=== PATIENT | male | born 1960 | race Caucasian/White ===

== ENCOUNTER 2016-10-13 05:43 | Day surgery (SDC) | payer OTHER ==
--- NOTE | 2016-10-12 16:21 | GHP ---
[f rep st] PREOP HISTORY AND PHYSICAL DATE OF ADMISSION: 10/13/2016 HISTORY: The patient is a 56-year-old male who presents with left knee pain for months duration. He has had swelling and pain. He has had a sense of catching. His symptoms prompted an MRI of the lef t knee, which shows a medial meniscal tear that communicates with the surface and some chondromalacia patella. He is significantly symptomatic. A left knee arthroscopy is planned. 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 He has had a lumb ar spine surgery, requiring fusions, and continues to have SI joint pain as well as some sciatica typ e pain down the left leg. His oncologist does not feel that he needs IgG infusion. He is not signif icantly immunocompromised at this point. ALLERGIES: He has reaction to Demerol resulting in hives. MEDICATIONS: Include Sprycel 80 mg tablets. He has been using morphine ER 15 mg extended release ta blets for his back discomfort. SURGERIES: Include his spine procedures. PHYSICAL EXAMINATION: GENERAL: The patient is a well-developed, well-nourished male, in no apparent distress. HEAD, NECK: Normocephalic, atraumatic. CHEST: Clear. CARDIOVASCULAR: Regular rate an d rhythm. ABDOMEN: Soft. MUSCULOSKELETAL/NEUROLOGIC: He is alert and oriented x3. Examination of the left knee shows tenderness along the joint lines, especially laterally. He has positive medial and lateral Elizabeth testing, and he has an effusion. He is ligamentously stable with negative Lachm an's, negative pivot-shift. No posterior sag. Collateral ligament stable. He has near full extensi on, flexing to about 120 degrees around which his knee is painful. No erythema or warmth or signs of infection. Normal valgus alignment. Neurovascular exam is intact. SKIN: Intact. IMPRESSION: Left knee has medial meniscal tear, chondromalacia patella, significant mechanical sympt oms. PLAN: Left knee arthroscopy. Benefits and risks of surgery have been reviewed. He has signed his c onsent form and wishes to proceed. /[id number]/MODL
[2016-10-13] MEDS ORDERED: CHLORHEXIDINE GLUC HIBICLENS 118 ML BTL TP ONE (06:00)
[2016-10-13] MEDS ORDERED: ceFAZolin 2 GM/DEXTROSE 100 ML IV ONE (06:00)
[2016-10-13] MEDS ORDERED: DEPO METHYLPREDNISOLONE 40 MG/ML SDV ONE (06:38)
[2016-10-13] MEDS ORDERED: BUPIVACAINE/EPI 0.5% 30 ML SDV ONE (06:38)
[2016-10-13] MEDS ORDERED: BUPIVACAINE 0.5% 30 ML SDV ONE (06:38)
[2016-10-13] MEDS ORDERED: SCOPOLAMINE HYDROBROMIDE 1.5 MG PATCH TD ONE ×3 (06:58→07:30)
[2016-10-13] MEDS ORDERED: fentaNYL 100 MCG/2 ML INJ ONE ×2 (07:02→07:44)
[2016-10-13] MEDS ORDERED: PROPOFOL/EMULSION 500 MG/50 ML BOTTLE IV ONE (07:02)
[2016-10-13] MEDS ORDERED: LIDOCAINE 2% 5 ML SDV ONE (07:04)
[2016-10-13] MEDS ORDERED: LR 1,000 ML IV ONE (07:09)
[2016-10-13] MEDS ORDERED: MIDAZOLAM 2 MG/2 ML VIAL ONE (07:13)
[2016-10-13] MEDS ORDERED: DEXAMETHASONE 4 MG/ML VIAL ONE (07:37)
[2016-10-13] MEDS ORDERED: ONDANSETRON 4 MG/2 ML VIAL ONE (07:37)
[2016-10-13] MEDS ORDERED: METOCLOPRAMIDE 10 MG/2 ML VIAL ONE (07:37)
[2016-10-13] MEDS ORDERED: OXYCODONE/APAP 5/325 TAB ONE (08:53)
--- NOTE | 2016-10-13 09:22 | GOP ---
[f rep st] OPERATIVE REPORT DATE OF OPERATION: SURGEON: Desmond Real MD ANESTHESIA: Dr. Tyler Lenz. PREOPERATIVE DIAGNOSIS: 1. Left knee medial meniscal tear. 2. Chondromalacia patella. POSTOPERATIVE DIAGNOSIS: 1. Left knee medial meniscal tear. 2. Chondromalacia patella. PROCEDURE PERFORMED: Left knee arthroscopy, partial medial meniscectomy, patellar chondroplasty. FINDINGS: Exam under anesthesia demonstrates a small effusion. Stable ligamentous exam. Negative L achman's. Negative pivot shift. No posterior . Collateral ligament stable. On arthrosco py, there was some grade 2 small areas of grade 3 softening of the undersurface of the patella. The trochlear groove has minimal chondromalacia, grade 1. The ACL is intact in the notch. In the medial compartment, the articular surfaces have minimal chondromalacia. There is a complex medial meniscal tear, largely communicating with the undersurface of the posterior horn and mid body about half the way back in the substance of the meniscus. It generates some unstable tissue on the under surface of the meniscus, and is largely a vertical tear. The remainder of the anterior part of the midbody and anterior horn is intact. The lateral compartment is preserved with good articular meniscal surfaces . ESTIMATED BLOOD LOSS: Minimal. No drains or specimens. All counts correct. The patient was taken in stable condition to recovery. DESCRIPTION OF PROCEDURE: The patient was taken to the operating room, placed supine on the operatin g table. Placed under general anesthetic with laryngeal mask ventilation. He received 2 g of IV Anc ef. I used a leg santiago on the left thigh. The left knee was prepped and draped for arthroscopy wit h chlorhexidine. Standard arthroscopy portals were used, and the entire knee was inspected with the above-noted findings. I used a basket punch and a rotary shaver to ellipse the meniscus back to a st able rim. The rim was smooth, tapered and balanced with the shaver. I flushed debris from the joint . I smoothed the undersurface of the patella with the shaver. The joint was irrigated. I placed 20 cc of 0.5% plain Marcaine in the joint and closed the portals with 4-0 Prolene. The wounds were rosa m ssed with Betadine-soaked Adaptic, 4x4s, sterile Webril, and a long-leg Pawel stocking. There were no complications. OPERATIVE INDICATIONS: Jamaal is a 56-year-old male, who presents with left knee pain, swelling and m echanical symptoms. MRI shows a medial meniscal tear, chondromalacia patella. /[id number]/MODL
== END 2016-10-13 09:40 | disposition home or self-care (01) ==
LOC: FSGY 05:43
PROVIDERS: ATTEND Orthopaedic Surgery
PROC: 0MQP4ZZ Repair Left Knee Bursa and Ligament, Percutaneous Endoscopic Approach (ICD-10-PCS; principal; 2016-10-13 07:15)
DX: M23.232 Derangement of other medial meniscus due to old tear or injury, left knee (principal); M22.42 Chondromalacia patellae, left knee; G89.29 Other chronic pain; I10 Essential (primary) hypertension; C92.10 Chronic myeloid leukemia, BCR/ABL-positive, not having achieved remission
CPT/HCPCS: J0690; J1020; J1100; J2250; J2405; J2704; J2765; J3010

== ENCOUNTER → 2018-02-18 | Outpatient (CLI) | payer OTHER | LOC: FIMAGING 10:55 | PROVIDERS: ATTEND Physician Assistant | DX: M12.88 Other specific arthropathies, not elsewhere classified, other specified site (principal); M99.71 Connective tissue and disc stenosis of intervertebral foramina of cervical region ==

== ENCOUNTER → 2018-12-12 | Outpatient (CLI) | payer OTHER | LOC: FIMAGING 12-10 19:48 | PROVIDERS: ATTEND Orthopaedic Surgery | DX: M77.51 Other enthesopathy of right foot and ankle (principal) ==